=== PATIENT | male | born 1960 | race African-American/Black ===

== ENCOUNTER 2021-10-15 23:20 | Inpatient (IN) | payer OTHER ==
[~2021-10-15] VITALS: Ht 177.8 cm; Wt 111.1 kg
--- NOTE | 2021-10-15 23:25 | NUR ---
PT BIBSELF C/O ABD PAIN, N/V X 1600 TODAY S/P TAKING VITAMINS AND EATING TUNA FISH. PT AAO4 BREATHING EVENLY AND UNLABORED. PT ATTACHED TO MONITOR AND POX. MD AT BEDSIDE FOR EVAL. LAC 20G INITIATED AND BLOOD SENT TO LAB. SKIN IS WARM AND DRY. PT GIVEN BLANKET AND CALL LIGHT WITHIN REACH
[2021-10-15] MEDS ORDERED: ONDANSETRON HCL/PF 4 MG/2 ML VIAL ONE (23:48)
[2021-10-15] MEDS ORDERED: MORPHINE SULFATE INJ 4 MG/ML DISP.SYRIN ONE (23:48)
[2021-10-15 23:57] LABS: BILIRUBIN,URINE SMALL (NEGATIVE); COLOR,URINE YELLOW (YELLOW); LEUKOCYTE ESTERASE ,URINE Negative (NEGATIVE); NITRITE, URINE Negative (NEGATIVE); PROTEIN,URINE Trace mg/dl (NEGATIVE); UGLUCOSE Negative (NEGATIVE)
[2021-10-15 23:57] LABS: BASOPHILS % (AUTO) 0.4 % (0.0-2.0); EOSINOPHILS % (AUTO) 0.6 % (0.0-6.0); HEMATOCRIT 48 % (39-51); HEMOGLOBIN 15.8 g/dL (13.5-17.5); LYMPHOCYTES # (AUTO) 0.8 K/uL (0.8-4.8); LYMPHOCYTES % (AUTO) 6.9 % (20.0-44.0); MEAN CORPUSCULAR HGB CONC 33 g/dl (31.0-36.0); MEAN CORPUSCULAR VOLUME 91 fL (80-96); MONOCYTES # (AUTO) 0.5 K/uL (0.1-1.30); MONOCYTES % (AUTO) 4.6 % (2.0-12.0); NEUTROPHILS # (AUTO) 9.7 K/uL (1.8-8.9); NEUTROPHILS % (AUTO) 87.5 % (43.0-81.0); PLATELET COUNT (AUTO) 159 K/uL (150-450); RED BLOOD CELL COUNT(AUTO) 5.26 MIL/uL (4.5-6.0)
[2021-10-16] MEDS ORDERED: MORPHINE SULFATE INJ 2 MG/ML DISP.SYRIN IV ONE
[2021-10-16] MEDS ORDERED: ONDANSETRON HCL/PF 4 MG/2 ML VIAL IVP ONE
[2021-10-16] MEDS ORDERED: IV NS 0.9% 1,000 ML BAG IV ONE
[2021-10-16 00:05] LABS: CALCIUM, SERUM 8.9 mg/dL (8.5-10.1); CARBON DIOXIDE 28 mmol/L (21-32); CHLORIDE 102 mmol/L (98-107); GLUCOSE 150 mg/dL (74-106); POTASSIUM 3.2 mmol/L (3.5-5.1); SODIUM SERUM 139 mmol/L (136-145); UREA NITROGEN, BLOOD 11 mg/dL (7-18)
[2021-10-16 00:07] LABS: BACTERIA,URINE Rare /HPF (None Seen); RBC,URINE NONE SEEN /HPF (0-2); SQUAMOUS EPITHELIAL CELL,UR Few /HPF (None Seen); WBC,URINE NONE SEEN /HPF (0-3)
[2021-10-16 00:12] LABS: ALANINE AMINOTRANSFERASE 290 U/L (12-78); ALBUMIN 3.8 g/dL (3.4-5.0); ALKALINE PHOSPHATASE 215 U/L (46-116); ASPARTATE AMINOTRANSFERASE 216 U/L (15-37); BILIRUBIN,DIRECT 2.9 mg/dL (0.0-0.2); TOTAL PROTEIN, SERUM 7.9 g/dL (6.4-8.2)
--- NOTE | 2021-10-16 00:13 | NUR ---
TAKENT TO CT
[2021-10-16 00:14] LABS: LIPASE 10488 U/L (73-393)
[2021-10-16] MEDS ORDERED: hydrALAZINE HCL IV 20 MG VIAL ONE (01:56)
[2021-10-16] MEDS ORDERED: hydrALAZINE HCL IV 20 MG VIAL IV PRN (02:00)
[2021-10-16] MEDS ORDERED: MORPHINE SULFATE INJ 4 MG/ML DISP.SYRIN ONE (02:39)
[2021-10-16] MEDS ORDERED: ONDANSETRON HCL/PF 4 MG/2 ML VIAL IV PRN ×2 (03:00→03:30)
[2021-10-16] MEDS ORDERED: MORPHINE SULFATE INJ 4 MG/ML DISP.SYRIN IV PRN (03:00)
--- NOTE | 2021-10-16 03:13 | NUR ---
GAVE REPORT TO JOSE RAMON MCCARTNEY FOR NHUNG
[2021-10-16 03:30] VITALS: BP 158/83
[2021-10-16] MEDS ORDERED: IV NS 0.9% 1,000 ML IV ONE (03:30)
--- NOTE | 2021-10-16 03:30 | NUR ---
MS RN ADMITTING NOTE PT TRANSPORTED BY [facility] TO UNIT FROM ED AT THIS TIME. RECEIVED REPORT FROM JOSE RAMON AMBROCIO @ED, A/OX 4. PT ABLE TO COMMUNICATE NEEDS. NO SOB NOTED, NO C/O AUGUSTIN AT THIS TIME, NO S/S OF ANY APPARENT DISTRESS NOTED. RESPIRATIONS EVEN AND UNLABORED, ACTIVE BOWEL SOUNDS AUSCULTATED THROUGHOUT, ABDOMEN IS TENDER AND NON DISTENDED, SKIN IS INTACT, WARM TO TOUCH. CAPILLARY REFILL < 3 SECONDS, PULSES PRESENT BILATERALLY, GOOD CIRCULATION NOTED. IV ACCESS IN LEFT AC G # 20, INTACT, PATENT AND FLUSHING WELL. PT'S BELONGINGS ACCOUNTED FOR, AND KEPT AT PT'S BEDSIDE PER PT REQUEST. ASPIRATION AND SAFETY PRECAUTIONS IN PLACE AND MAINTAINED AT ALL TIMES. BED IN LOWEST, LOCKED POSITION, SIDE RAILS UP X2, TABLE AND CALL LIGHT WITHIN REACH. WILL CONTINUE TO MONITOR
[2021-10-16 03:35] VITALS: BP 158/83
[2021-10-16] MEDS: POTASSIUM CL. PREMIX PERIPHER. 50 ML IV SCH ×4 (05:18→06:35)
[2021-10-16] MEDS: PANTOPRAZOLE 40 MG VIAL IV SCH (05:19)
--- NOTE | 2021-10-16 06:30 | NUR ---
MS RN CLOSING NOTE PT REMAINED STABLE THROUGHOUT SHIFT. WILL ENDORSE TO AM RN FOR NHUNG.
[2021-10-16 07:31] LABS: BASOPHILS % (AUTO) 0.1 % (0.0-2.0); HEMATOCRIT 45 % (39-51); HEMOGLOBIN 15.2 g/dL (13.5-17.5); LYMPHOCYTES # (AUTO) 0.9 K/uL (0.8-4.8); LYMPHOCYTES % (AUTO) 8.1 % (20.0-44.0); MEAN CORPUSCULAR HGB CONC 34 g/dl (31.0-36.0); MEAN CORPUSCULAR VOLUME 91 fL (80-96); MONOCYTES # (AUTO) 0.9 K/uL (0.1-1.30); MONOCYTES % (AUTO) 7.9 % (2.0-12.0); NEUTROPHILS # (AUTO) 9.5 K/uL (1.8-8.9); NEUTROPHILS % (AUTO) 83.9 % (43.0-81.0); PLATELET COUNT (AUTO) 159 K/uL (150-450); RED BLOOD CELL COUNT(AUTO) 4.95 MIL/uL (4.5-6.0); WHITE BLOOD COUNT (AUTO) 11.3 K/uL (4.3-11.0)
--- NOTE | 2021-10-16 07:36 | NUR ---
MS RN OPENING NOTE Patient lying in bed, awake. A/O x 4. On room air, breathing evenly and unlabored. No SOB or s/s of distress noted. IV access on LAC #20G, intact and patent. Safety precautions in place: bed in low, locked position; siderails up x2; call light within reach. Will continue to monitor.
[2021-10-16 07:46] LABS: ALBUMIN 3.5 g/dL (3.4-5.0); CALCIUM, SERUM 8.3 mg/dL (8.5-10.1); PHOSPHORUS 2.8 mg/dL (2.5-4.9); POTASSIUM 3.4 mmol/L (3.5-5.1); TOTAL PROTEIN, SERUM 7.2 g/dL (6.4-8.2)
[2021-10-16 08:00] VITALS: BP 164/83
[2021-10-16] MEDS ORDERED: Potassium Chloride 10 MEQ in IV D5W 50 ML IV SCH (09:30)
[2021-10-16] MEDS ORDERED: POTASSIUM CL. PREMIX PERIPHER. 50 ML IV SCH (10:00)
[2021-10-16 16:00] VITALS: BP 168/108
[2021-10-16] MEDS: hydrALAZINE HCL IV 20 MG VIAL IV PRN ×2 (17:58→23:52)
--- NOTE | 2021-10-16 18:22 | NUR ---
RN NOTE PATIENT'S BP WAS 183/87 OH 111. HYDRALAZINE 0.5 ML IV PRN GIVEN.
--- NOTE | 2021-10-16 18:51 | NUR ---
MS RN CLOSING NOTE Patient in bed, awake. A/O x 4, able to make needs known. Stable on room air, no SOB or s/s of distress noted. IV access on LAC #20G is intact, patent, and flushing well. NPO status maintained. All needs attended to. Due meds given. No complains of pain or any discomfort at this time. Safety precautions maintained: bed in low, locked position; siderails up x 2; call light within reach of patient. Will endorse to production supervisor off shift nurse for NHUNG.
--- NOTE | 2021-10-16 19:00 | NUR ---
MS RN OPENING NOTE RECEIVED PT IN BED, AWAKE AND RESTING. A/O X4. PT IS ON ROOM AIR, NO SOB OR RESPIRATORY DISTRESS NOTED, NO C/O PAIN AT THIS TIME. RESPIRATIONS EVEN AND UNLABORED. IV ACCESS NOTED IN LEFT AC G #20 . FALL AND SAFETY MEASURES IN PLACE AND MAINTAINED AT ALL TIMES. BED ALARM, BED IN LOW AND LOCKED POSITION, HOB ELEVATED TO SEMI FOWLERS POSITION, CALL LIGHT AND TABLE WITHIN REACH. SIDE RAILS UP X2. WILL CONTINUE WITH PLAN OF CARE
[2021-10-16 20:00] VITALS: BP_SYST 112; BP_SYST 159; BP_DIAS 109; BP_DIAS 79
--- NOTE | 2021-10-16 23:52 | NUR ---
PT'S BP 171/108, HR 126. HYDRALAZINE 10MG (0.5ML) IV Q6HR PRN ADMINISTERED AT THIS PER ORDER FOR SBP > 160. WILL CONTINUE TO MONITOR.
[2021-10-17] MEDS ORDERED: ZOLPIDEM TARTRATE 5 MG TABLET PO PRN (00:30)
[2021-10-17] MEDS: PANTOPRAZOLE 40 MG VIAL IV SCH (05:18)
[2021-10-17 06:18] LABS: BASOPHILS % (AUTO) 0.1 % (0.0-2.0); EOSINOPHILS % (AUTO) 0.2 % (0.0-6.0); HEMATOCRIT 46 % (39-51); HEMOGLOBIN 15.5 g/dL (13.5-17.5); LYMPHOCYTES # (AUTO) 1.5 K/uL (0.8-4.8); MEAN CORPUSCULAR HGB CONC 34 g/dl (31.0-36.0); MEAN CORPUSCULAR VOLUME 91 fL (80-96); MONOCYTES % (AUTO) 7.1 % (2.0-12.0); NEUTROPHILS % (AUTO) 81.6 % (43.0-81.0); PLATELET COUNT (AUTO) 158 K/uL (150-450); RED BLOOD CELL COUNT(AUTO) 4.99 MIL/uL (4.5-6.0); WHITE BLOOD COUNT (AUTO) 13.5 K/uL (4.3-11.0)
--- NOTE | 2021-10-17 06:30 | NUR ---
MS RN CLOSING NOTE PT REMAINED STABLE THROUGHOUT SHIFT. WILL ENDORSE TO AM RN FOR NHUNG.
[2021-10-17 06:54] LABS: CALCIUM, SERUM 8.4 mg/dL (8.5-10.1); CREATININE 1.1 mg/dL (0.6-1.3)
--- NOTE | 2021-10-17 07:14 | NUR ---
MS RN OPENING NOTE PATIENT RECEIVED ASLEEP IN BED. PATIENT IS BREATHING W/O S/S OF DISTRESS; SKIN IS CLEAN AND INTACT. HE HAS A LAC #20 PATENT. PATIENT WILL BE MONITORED THROUGHOUT SHIFT FOR ALL NEEDS.
[2021-10-17 08:00] VITALS: BP 171/110
[2021-10-17] MEDS: PIPERACILLIN /TAZOBACTAM 3.375 G in IV D5W 100 ML IV SCH ×2 (08:10→15:22)
[2021-10-17] MEDS ORDERED: PIPERACILLIN /TAZOBACTAM 3.375 G in IV D5W 50 ML IV SCH (12:00)
[2021-10-17] MEDS: IV NS 0.9% 1,000 ML IV PRN (15:22)
[2021-10-17 16:00] VITALS: BP 164/99
--- NOTE | 2021-10-17 18:48 | NUR ---
MS RN CLOSING NOTE PATIENT AWAKE IN BED WATCHING TV. PATIENT HAS REMAINED NPO D/T PANCREATITIS. PATIENT WAS ABLE TO SPEAK WITH HIS FAMILY A FEW TIMES THROUGHOUT THE DAY BY PHONE. NO S/S OF DISTRESS. NO PAIN NOTED. PATIENT IS STABLE. SAFETY MEASURES IN PLACE: BED AT LOWEST POSITION, RAILS UP X2, BED LOCKED IN PLACE, CALL LIGHT WITHIN REACH. WILL ENDORSE TO POLICE LIAISON OFFICER FOR NHUNG.
--- NOTE | 2021-10-17 19:43 | NUR ---
MS RN OPENING NOTES: RECEIVED PATIENT AWAKE IN BED, BED IN LOW POSITION, CALL LIGHTS WITHIN REACH, NO COMPLAIN OF PAIN AND DISCOMFORT AT THIS TIME, IV LINE AT [id number] WITH ONGOING IV FLUID AT NS@75ML PER HOUR INFUSING WELL, PATIENT IS A/P X4 AMBULATORY AND ABLE TO MAKE NEEDS KNOW, STILL NPO, PATIENT KEPT CLEAN AND DRY, ALL NEEDS MET WILL CONTINUE TO MONITOR.
[2021-10-17 20:00] VITALS: BP 156/104
[2021-10-18] MEDS: PIPERACILLIN /TAZOBACTAM 3.375 G in IV D5W 100 ML IV SCH ×4 (00:44→23:51)
[2021-10-18] MEDS: MORPHINE SULFATE INJ 4 MG/ML DISP.SYRIN IM PRN ×4 (01:30→20:13)
[2021-10-18] MEDS: PANTOPRAZOLE 40 MG VIAL IV SCH (03:41)
[2021-10-18 06:34] LABS: BASOPHILS % (AUTO) 0.2 % (0.0-2.0); EOSINOPHILS % (AUTO) 0.2 % (0.0-6.0); HEMATOCRIT 44 % (39-51); HEMOGLOBIN 14.7 g/dL (13.5-17.5); LYMPHOCYTES # (AUTO) 1.4 K/uL (0.8-4.8); LYMPHOCYTES % (AUTO) 10.1 % (20.0-44.0); MEAN CORPUSCULAR HGB CONC 34 g/dl (31.0-36.0); MEAN CORPUSCULAR VOLUME 92 fL (80-96); MONOCYTES # (AUTO) 1.1 K/uL (0.1-1.30); MONOCYTES % (AUTO) 8.5 % (2.0-12.0); NEUTROPHILS # (AUTO) 10.9 K/uL (1.8-8.9); PLATELET COUNT (AUTO) 158 K/uL (150-450); WHITE BLOOD COUNT (AUTO) 13.5 K/uL (4.3-11.0)
[2021-10-18 06:56] LABS: CALCIUM, SERUM 8.2 mg/dL (8.5-10.1); CREATININE 1.1 mg/dL (0.6-1.3); POTASSIUM 3.3 mmol/L (3.5-5.1)
--- NOTE | 2021-10-18 07:31 | NUR ---
MS RN CLOSING NOTES: PATIENT SLEEP IN BED COMFORTABLY, BED IN LOW POSITION, CALL LIGHTS WITHIN REACH, NO COMPLAIN OF PAIN AND DISCOMFORT AT THIS TIME, PATIENT IS A/O X4 AMBULATORY, NPO WITH IV LINE AT LAC#20 WITH ONGOING IV LINE OF NSS@75 PATIENT KEPT CLEAN AND DRY, ALL NEEDS MET ENDORSE TO INCOMING SHIFT.
--- NOTE | 2021-10-18 08:01 | NUR ---
MS RN OPENING NOTES: RECEIVED PATIENT AWAKE IN BED A/O x4. BED IN LOW POSITION, CALL LIGHTS WITHIN REACH, Pt complain of pain 5/10, WILL ADMINISTER PAIN MEDS AT THIS TIME, IV LINE AT L AC 20G WITH ONGOING IV FLUID AT NS@75ML/ hr INFUSING WELL. Pt IS AMBULATORY AND ABLE TO MAKE NEEDS KNOWN, STILL NPO, PATIENT KEPT CLEAN AND DRY, ALL NEEDS MET AT THIS TIME AND WILL CONTINUE TO MONITOR THROUGHOUT THE SHIFT.
[2021-10-18 08:13] VITALS: BP 173/108
[2021-10-18] MEDS: hydrALAZINE HCL IV 20 MG VIAL IV PRN ×2 (08:18→16:05)
[2021-10-18] MEDS: POTASSIUM CL. PREMIX PERIPHER. 50 ML IV SCH ×2 (10:39→11:28)
[2021-10-18 16:17] VITALS: BP 166/99
--- NOTE | 2021-10-18 19:26 | NUR ---
MS RN CLOSING NOTES: PATIENT AWAKE IN BED COMFORTABLY. BED IS IN LOW POSITION, CALL LIGHTS WITHIN REACH, NO COMPLAINTS OF PAIN OR DISCOMFORT AT THIS TIME, PATIENT IS A/O X4 AMBULATORY, NPO WITH IV LINE AT LAC#20 WITH ONGOING IV LINE OF NS@75. PATIENT KEPT CLEAN AND DRY, ALL NEEDS MET AT THIS TIME. WILL ENDORSE TO ONCOMING SHIFT.
--- NOTE | 2021-10-18 19:28 | NUR ---
MS RN OPENING NOTES: RECEIVED PATIENT AWAKE IN BED, BED IN LOW POSITION, CALL LIGHTS WITHIN REACH, NO COMPLAIN OF PAIN AND DISCOMFORT AT THIS TIME, PATIENT IS A/O X4 AMBULATORY ABLE TO MAKE NEEDS KNOW, STILL NPO, IV LINE AT RT HAND #22 WITH ONGOING IV FLUID OF NSS@75ML PER HOUR INFUSING WELL, PATIENT KEPT CLEAN AND DRY, ALL NEEDS MET, WILL CONTINUE TO MONITOR.
[2021-10-18 20:00] VITALS: BP 143/99
[2021-10-19] MEDS: PANTOPRAZOLE 40 MG VIAL IV SCH (03:38)
[2021-10-19] MEDS: IV NS 0.9% 1,000 ML IV PRN (06:11)
[2021-10-19 06:26] LABS: BASOPHILS % (AUTO) 0.3 % (0.0-2.0); EOSINOPHILS % (AUTO) 0.8 % (0.0-6.0); HEMATOCRIT 43 % (39-51); HEMOGLOBIN 14.5 g/dL (13.5-17.5); LYMPHOCYTES # (AUTO) 1.2 K/uL (0.8-4.8); LYMPHOCYTES % (AUTO) 9.7 % (20.0-44.0); MEAN CORPUSCULAR HGB CONC 34 g/dl (31.0-36.0); MEAN CORPUSCULAR VOLUME 91 fL (80-96); MONOCYTES # (AUTO) 1.3 K/uL (0.1-1.30); MONOCYTES % (AUTO) 10.2 % (2.0-12.0); NEUTROPHILS # (AUTO) 9.8 K/uL (1.8-8.9); PLATELET COUNT (AUTO) 159 K/uL (150-450); RED BLOOD CELL COUNT(AUTO) 4.74 MIL/uL (4.5-6.0); WHITE BLOOD COUNT (AUTO) 12.4 K/uL (4.3-11.0)
[2021-10-19 06:28] LABS: CALCIUM, SERUM 8.7 mg/dL (8.5-10.1); POTASSIUM 3.5 mmol/L (3.5-5.1)
--- NOTE | 2021-10-19 06:39 | NUR ---
MS RN CLOSING NOTES PATIENT SLEEP IN BED COMFORTABLY, BED IN LOW POSITION, CALL LIGHTS WITHIN REACH, NO COMPLAIN OF PAIN AND DISCOMFORT AT THIS TIME, PATIENT IS A/O X4 AMBULATORY ABLE TO MAKE NEED KNOWN, NPO, WITH RIGHT HAND #22 IV LINE WITH ONGOING IV HYDRATION OF 0.9NSS @75ML PER HOUR INFUSING WELL, PATIENT KEPT CLEAN AND DRY, ALL NEEDS MET, ENDORSE TO INCOMING SHIFT.
--- NOTE | 2021-10-19 07:16 | NUR ---
RN OPENING NOTES PATIENT IN BED RESTING, EYES CLOSED. ABLE TO BE AWAKENED, A/O X4. NO COMPLAIN OF PAIN AT THIS TIME. AMBULATORY W/ STEADY GAIT. RIGHT HAND #22 IV LINE INTACT AND PATENT, IV HYDRATION OF INFUSING WELL. CURRENTLY NPO STATUS. SAFETY MEASURES IN PLACE. WILL CONTINUE TO MONITOR.
--- NOTE | 2021-10-19 07:29 | NUR ---
RN NOTES SEEN BY DR. PAULSON TODAY AND MADE AWARE OF PLAN OF CARE. PATIENT IS OK FOR SURGERY AND TO LET DR. CONTRERAS'S TEAM KNOW WHEN THEY COME SEE THE PATIENT.
[2021-10-19] MEDS: PIPERACILLIN /TAZOBACTAM 3.375 G in IV D5W 100 ML IV SCH ×3 (07:48→23:32)
[2021-10-19] MEDS: MORPHINE SULFATE INJ 4 MG/ML DISP.SYRIN IM PRN ×3 (07:54→20:05)
[2021-10-19 08:00] VITALS: BP 156/95
--- NOTE | 2021-10-19 12:39 | NUR ---
RN NOTES PATIENT SEEN BY PRISCILLA FINK NP, FOR CONSULT W/ ORDER FOR GI CONSULT W/ DR. NGUYEN D/T "MRCP noted with choledocholithiasis". Addendum: 10/19/21 at 1359 by JIMBO BRAVO RN INFORMED DR. NGUYEN PER CHARGE NURSE.
--- NOTE | 2021-10-19 14:10 | NUR ---
RN NOTES SPOKE W/ DR. NGUYEN AND INFORMED ABOUT GI CONSULT FOR PATIENT. PER MD, OK FOR PATIENT TO BE ON CLEAR LIQUID DIET, CHECK LIPASE LEVEL EVERYDAY, PAIN CONTROL, POSSIBLE ERCP THURSDAY (NPO POST MIDNIGHT ON DAY OF ERCP).
--- NOTE | 2021-10-19 15:00 | NUR ---
RN NOTES INFORMED PATIENT ABOUT GI CONSULT W/ DR. NGUYEN AND PLAN OF CARE. CONSENT FORM FOR ERCP SIGNED BY PATIENT AND PLACED IN PATIENT'S CHART. NO COMPLAINT OF PAIN NOR N/V AT THIS TIME. IV FLUIDS CONTINUOUS. PLACED ON CLEAR LIQUID DIET PER MD. TOLERATING ICE CHIPS AT THIS TIME.
[2021-10-19 16:00] VITALS: BP 153/93
--- NOTE | 2021-10-19 17:28 | NUR ---
RN NOTES PATIENT CURRENTLY HAVING DINNER W/ CLEAR LIQUID DIET. NO COMPLAINT OF NAUSEA/VOMITING AT THIS TIME; NO COMPLAINT OF PAIN AT THE MOMENT. TOLERATING DIET SO FAR. PATIENT FEELS HE WANTS TO "DO NUMBER 2" AND WAS REASSURED THAT IT'S NORMAL. WILL CONTINUE TO MONITOR.
--- NOTE | 2021-10-19 18:45 | NUR ---
RN NOTES PATIENT IN BED RESTING, AWAKE AND VERBALLY RESPONSIVE. A/O X4. NO COMPLAIN OF PAIN AT THIS TIME. AMBULATORY W/ STEADY GAIT. RIGHT HAND #22 IV LINE INTACT AND PATENT, IV HYDRATION OF INFUSING WELL. TOLERATING CLEAR LIQUID DIET. SAFETY MEASURES MAINTAINED. WILL ENDORSE TO GRAY MIXING OPERATOR RN FOR NHUNG.
--- NOTE | 2021-10-19 19:05 | NUR ---
RN NOTES: RECEIVED AWAKE ON BED, A/OX4M WITH BRP, AMBULATORY, ON CLEAR LIQUIDS,IV CANNULA ON THE RH G#22 INTACT AND PATENT WITH IVF OF OF NS AT 75 ML/HR ONGOING. PER ENDORSEMENT FOR ERCP ON THURSDAY PER .ORIENTED TO UNIT AND STAFF.FALL AND SAFETY PRECAUTION OBSERVED, BED LOW AND LOCKED, CALL LIGHT KEPT WITHIN EASY REACH.
[2021-10-19 20:00] VITALS: BP 149/87
--- NOTE | 2021-10-19 20:06 | NUR ---
RN NOTES: -COMPLAINED OF SEVERE GENERALIZED PAIN AND HE ASKED FOR HIS PAIN MEDICATION,GIVEN PER PATIENT REQUEST, NON PHARMACOLOGIC INTERVENTION RENDERED. Addendum: 10/19/21 at 2020 by KIRSTIE MATHUR RN RN NOTES: CHARGE NURSE HAVE TAKEN THE MEDICATION FROM THE [facility], MEDICATION GIVEN.
--- NOTE | 2021-10-19 22:23 | NUR ---
RN NOTES: -AT 2049-ABLE TO SLEEP AND TAKE A REST.KEPT CALL LIGHT WITHIN EASY REACH.
[2021-10-20] MEDS: MORPHINE SULFATE INJ 4 MG/ML DISP.SYRIN IM PRN ×6 (00:42→23:56)
--- NOTE | 2021-10-20 00:49 | NUR ---
RN NOTES: HE WAS AWAKEN, WENT TO THE BATHROOM, WHEN HE CAME BACK, HE SAID HE HAS ABDOMINAL PAIN AND ASKING FOR HIS PAIN MEDICATION, LATEST BP-150/85, PAIN MEDICATION GIVEN PER PATIENT REQUEST.
--- NOTE | 2021-10-20 01:15 | NUR ---
RN NOTES: -TRYING TO SLEEP IN BETWEEN, KEPT CALL LIGHT WITHIN EASY REACH.
[2021-10-20] MEDS: PANTOPRAZOLE 40 MG VIAL IV SCH (03:42)
[2021-10-20 06:45] LABS: BASOPHILS % (AUTO) 0.2 % (0.0-2.0); EOSINOPHILS % (AUTO) 1.8 % (0.0-6.0); HEMATOCRIT 40 % (39-51); HEMOGLOBIN 13.2 g/dL (13.5-17.5); LYMPHOCYTES # (AUTO) 1.6 K/uL (0.8-4.8); LYMPHOCYTES % (AUTO) 13.6 % (20.0-44.0); MEAN CORPUSCULAR HGB CONC 33 g/dl (31.0-36.0); MEAN CORPUSCULAR VOLUME 92 fL (80-96); MONOCYTES # (AUTO) 1.4 K/uL (0.1-1.30); MONOCYTES % (AUTO) 11.8 % (2.0-12.0); NEUTROPHILS # (AUTO) 8.4 K/uL (1.8-8.9); NEUTROPHILS % (AUTO) 72.6 % (43.0-81.0); PLATELET COUNT (AUTO) 187 K/uL (150-450); RED BLOOD CELL COUNT(AUTO) 4.34 MIL/uL (4.5-6.0); WHITE BLOOD COUNT (AUTO) 11.5 K/uL (4.3-11.0)
[2021-10-20 07:23] LABS: ALBUMIN 2.2 g/dL (3.4-5.0); BILIRUBIN,TOTAL 6.2 mg/dL (0.2-1.0); CALCIUM, SERUM 8.3 mg/dL (8.5-10.1); CREATININE 1.1 mg/dL (0.6-1.3); POTASSIUM 3.5 mmol/L (3.5-5.1); TOTAL PROTEIN, SERUM 6.3 g/dL (6.4-8.2)
--- NOTE | 2021-10-20 07:38 | NUR ---
RN NOTES: ABLE TO SLEEP AND REST, KEPT CALL LIGHT WITHIN EASY REACH, FOR LABS IN THE MORNING , ENDORSED FOR CONTINUITY OF CARE.
--- NOTE | 2021-10-20 07:57 | NUR ---
MS ALBRIGHT AM SHIFT NOTES - OPENING RECEIVED REPORT FROM PM RN AT Pt. BEDSIDE. Pt. AWAKE AND COMMUNICATIVE WITHOUT ACUTE DISTRESS AT THIS TIME. VSS.
[2021-10-20] MEDS: PIPERACILLIN /TAZOBACTAM 3.375 G in IV D5W 100 ML IV SCH ×3 (08:27→23:26)
[2021-10-20] MEDS: IV NS 0.9% 1,000 ML IV PRN (08:56)
--- NOTE | 2021-10-20 19:15 | NUR ---
Patient is A&Ox4. No signs of distress. Says pain is tolerable at this time but will call if medicine needed. IV patent and flushed. Reminded pt. he will be NPO post midnight. Patient verbalizes understanding. Will cont. to monitor pt. throughout shift.
[2021-10-21] MEDS: PANTOPRAZOLE 40 MG VIAL IV SCH (03:37)
[2021-10-21] MEDS: IV NS 0.9% 1,000 ML IV PRN (04:20)
--- NOTE | 2021-10-21 05:26 | NUR ---
new larger bore Iv access established. #20G PIV L wrist.
--- NOTE | 2021-10-21 06:04 | NUR ---
Patient is A&Ox4. VSS. C/o abdominal pain x2 overnight with relief from PRN Morphine. Able to sleep well. All consents signed for AM ERCP scheduled for 1100. Patient has been NPO since 0130 more than 8 hours prior to procedure time.
[2021-10-21 06:57] LABS: BASOPHILS % (AUTO) 0.4 % (0.0-2.0); EOSINOPHILS % (AUTO) 1.8 % (0.0-6.0); HEMATOCRIT 39 % (39-51); LYMPHOCYTES # (AUTO) 1.7 K/uL (0.8-4.8); LYMPHOCYTES % (AUTO) 14.3 % (20.0-44.0); MEAN CORPUSCULAR HGB CONC 34 g/dl (31.0-36.0); MEAN CORPUSCULAR VOLUME 92 fL (80-96); MONOCYTES # (AUTO) 1.2 K/uL (0.1-1.30); MONOCYTES % (AUTO) 10.1 % (2.0-12.0); NEUTROPHILS # (AUTO) 8.6 K/uL (1.8-8.9); NEUTROPHILS % (AUTO) 73.4 % (43.0-81.0); PLATELET COUNT (AUTO) 196 K/uL (150-450); RED BLOOD CELL COUNT(AUTO) 4.25 MIL/uL (4.5-6.0); WHITE BLOOD COUNT (AUTO) 11.7 K/uL (4.3-11.0)
--- NOTE | 2021-10-21 07:30 | NUR ---
m/s phd intern: notes dr. rabago at bedside and updating plan of care. pt verbalized understanding. pt remains npo,for ercp today at 1100 per report. no c/o pain or any discomfort. instructed to call for assistance. will continue to monitor.
[2021-10-21] MEDS: MORPHINE SULFATE INJ 4 MG/ML DISP.SYRIN IM PRN (07:43)
--- NOTE | 2021-10-21 07:43 | NUR ---
m/s manager work: notes c/o 8/10 lower abdomen pain, medicated with morphine 4mg im as ordered. instructed to call for assistance. will continue to monitor.
[2021-10-21] MEDS: PIPERACILLIN /TAZOBACTAM 3.375 G in IV D5W 100 ML IV SCH ×3 (07:48→23:57)
[2021-10-21 08:13] VITALS: BP 145/97
--- NOTE | 2021-10-21 08:13 | NUR ---
m/s staff nurse: notes pt in bed with eyes close, no s/s of resp. distress noted. call light within reach. will monitor.
[2021-10-21] MEDS ORDERED: IOHEXOL 240MG/ML 0 ML IV ONE (09:19)
[2021-10-21] MEDS ORDERED: ANESTHESIA TRAY IN PYXIS 1 EA TRAY MC ONE (09:19)
[2021-10-21] MEDS ORDERED: INDOMETHACIN 50 MG SUPP.RECT ONE (09:19)
[2021-10-21] MEDS ORDERED: IOHEXOL 240MG/ML 50 ML IV ONE (09:43)
--- NOTE | 2021-10-21 10:42 | NUR ---
m/s rubber press tender: notes to ercp via bed at this time accompanied by tech and 1 rn with chart.
[2021-10-21 11:07] LABS: CALCIUM, SERUM 8.6 mg/dL (8.5-10.1)
[2021-10-21 12:50] VITALS: BP 152/88
--- NOTE | 2021-10-21 12:50 | NUR ---
m/s senior director: notes received pt from recovery room with dx: s/p ercp. pt is awake, a/ox4. no c/o pain or any discomfort. vss, afebrile. assisted to bathroom. no distress noted. will continue to monitor.
--- NOTE | 2021-10-21 13:55 | NUR ---
m/s birthing nurse: surgeon f/u seen and examined by kendall (carol) at this time. for possible surgery in am per journeyman press operator. pt verbalized understanding re: plan of care. pt having clear liquid diet at this time. instructed to call for assistance.
[2021-10-21 15:58] VITALS: BP 162/87
--- NOTE | 2021-10-21 16:30 | NUR ---
m/s control center operator: notes kendall (television announcer) called and informed cn that she going to talk to the pt and plan to do surgery as outpatient as stated. clear liquid diet re order. pt made aware.
--- NOTE | 2021-10-21 17:30 | NUR ---
m/s supervisor blasting: surgeon f/u kendall (switcher) at bedside and updating the pt's plan of care.
--- NOTE | 2021-10-21 18:15 | NUR ---
m/s appliance painter and refinisher: notes pt request to speak to kendall (carol) once more, per pt sister from [place] has questions and concerns. kendall (registry np) made aware and pt handed the phone to kendall. all questions and concerns answered by registry np, but still adamant getting the surgery here and not outpatient. per kendall, dr. jaimes to come and to see pt. pt aware.
--- NOTE | 2021-10-21 18:55 | NUR ---
m/s production quality analyst: surgeon f/u dr. jaimes at bedside educating pt at this time.
--- NOTE | 2021-10-21 19:15 | NUR ---
m/s machine icer: notes bedside report given to shana (rn) for continuity of care.
--- NOTE | 2021-10-21 19:20 | NUR ---
MS RN OPENING NOTES RECEIVED PATIENT AWAKE LAYING IN BED. A/O X4 PATIENT WITH REGULAR AND UNLABORED BREATHING ON ROOM AIR, TOLERATED WELL. NO SIGNS AND SYMPTOMS OF DISTRESS NOTED. NO COMPLAIN OF PAIN OR DISCOMFORT AT THIS TIME. PATIENT IS AMBULATORY WITH NO WEAKNESS NOTED. IV ACCESS R HAND G #22 WITH NS @75 MLS/HR AND L WRIST G #20 SL. ACCESS PATENT AND INTACT. SKIN IS DRY AND INTACT. SAFETY PRECAUTIONS ENFORCED WITH BED LOCKED AND AT LOWEST POSITION SIDERAILS UP X2. CALL LIGHT WITHIN REACH AT ALL TIMES. WILL CONTINUE TO MONITOR PATIENT.
--- NOTE | 2021-10-21 19:30 | NUR ---
MS ALBRIGHT OPENING NOTES RECEIVED PATIENT AWAKE LAYING IN BED. PATIENT IS A/O X1-2. PATIENT IS STABLE ON ROOM AIR. IV ACCESS NOTED IN RAC G#18, WHICH IS INTACT, PATENT, AND FLUSHING WELL. PATIENT'S IN NO ACUTE DISTRESS AT THIS TIME. SAFETY MEASURES IN PLACE: BED LOCKED, BED ALARM ON, SR UPX3, AND CALL LIGHT WITHIN REACH OF THE PATIENT. WILL CONTINUE TO MONITOR THE PATIENT. Addendum: 10/21/21 at 2040 by BETZY HERNANDEZ RN DISREGARD THIS NOTE
[2021-10-21 20:00] VITALS: BP 146/81
[2021-10-22] MEDS: PANTOPRAZOLE 40 MG VIAL IV SCH (03:56)
--- NOTE | 2021-10-22 06:21 | NUR ---
MS RN CLOSING NOTES PATIENT IS AWAKE IN BED. A/O X4 PATIENT STILL WITH REGULAR AND UNLABORED BREATHING ON ROOM AIR, TOLERATED WELL. NO SIGNS AND SYMPTOMS OF DISTRESS NOTED. NO COMPLAIN OF PAIN OR DISCOMFORT AT THIS TIME. PATIENT IS AMBULATORY WITH NO WEAKNESS NOTED. IV ACCESS R HAND G #22 WITH NS @75 MLS/HR AND L WRIST G #20 SL. ACCESS PATENT AND INTACT. SKIN IS DRY AND INTACT. SAFETY PRECAUTIONS ENFORCED WITH BED LOCKED AND AT LOWEST POSITION SIDERAILS UP X2. CALL LIGHT WITHIN REACH AT ALL TIMES. WILL ENDORSE CONTINUITY OF CARE TO DAY SHIFT NURSE.
[2021-10-22 07:07] LABS: ALBUMIN 2.3 g/dL (3.4-5.0); BILIRUBIN,TOTAL 3.2 mg/dL (0.2-1.0); CALCIUM, SERUM 8.3 mg/dL (8.5-10.1); CREATININE 0.9 mg/dL (0.6-1.3); POTASSIUM 3.3 mmol/L (3.5-5.1); TOTAL PROTEIN, SERUM 6.2 g/dL (6.4-8.2)
[2021-10-22 07:21] LABS: BASOPHILS % (AUTO) 0.5 % (0.0-2.0); EOSINOPHILS % (AUTO) 1.4 % (0.0-6.0); HEMATOCRIT 37 % (39-51); HEMOGLOBIN 12.4 g/dL (13.5-17.5); LYMPHOCYTES # (AUTO) 1.1 K/uL (0.8-4.8); LYMPHOCYTES % (AUTO) 11.4 % (20.0-44.0); MEAN CORPUSCULAR HGB CONC 34 g/dl (31.0-36.0); MEAN CORPUSCULAR VOLUME 92 fL (80-96); MONOCYTES # (AUTO) 0.9 K/uL (0.1-1.30); MONOCYTES % (AUTO) 9.5 % (2.0-12.0); NEUTROPHILS # (AUTO) 7.4 K/uL (1.8-8.9); NEUTROPHILS % (AUTO) 77.2 % (43.0-81.0); PLATELET COUNT (AUTO) 241 K/uL (150-450); RED BLOOD CELL COUNT(AUTO) 4.03 MIL/uL (4.5-6.0); WHITE BLOOD COUNT (AUTO) 9.6 K/uL (4.3-11.0)
[2021-10-22] MEDS: PIPERACILLIN /TAZOBACTAM 3.375 G in IV D5W 100 ML IV SCH (08:00)
[2021-10-22 08:26] VITALS: BP 160/89
--- NOTE | 2021-10-22 08:45 | NUR ---
m/s senior examiner: notes pt refusing iv insertion and antibiotic, stating, "i don't want anything on my body right now, i want to know when i'm leaving, i don't want to pay out of my pocket..." pt has a lot of concerns about elective surgery, money, and staying in the hospital. cn made aware.
[2021-10-22] MEDS ORDERED: AMLODIPINE BESYLATE 5 MG TABLET PO SCH (09:00)
--- NOTE | 2021-10-22 09:50 | NUR ---
m/s stock counter: md visit dr. sequeira at bedside talking to pt and updating plan of care. for d'c home today. pt refused norvasc when offered x3. pt understood the risks when not taking blood pressure med, stated, "i will take my viagra and other herbal meds when i get home."
[2021-10-22] MEDS ORDERED: POTASSIUM CHLORIDE 20 MEQ TAB.PRT.SR PO ONE (10:00)
--- NOTE | 2021-10-22 10:00 | NUR ---
m/s shingle sawyer: notes discharge order received from md, pt verbalized understanding and will f/u with his primary medical doctor at [facility] in regards to elective surgery as stated. order acknowledged.
--- NOTE | 2021-10-22 10:24 | NUR ---
m/s home sales service professional: notes discharge instructions given to pt and verbalized understanding. pt has his car parked here by the [facility] emergency parking
--- NOTE | 2021-10-22 11:40 | NUR ---
m/s drawing kiln supervisor: notes discharge home in stable condition via own private car with all d'c papers and valuables.
== END 2021-10-22 11:30 | disposition home or self-care (01) ==
LOC: ER 23:23 → MED 10-16 01:46
PROVIDERS: ADMIT Family Medicine; ATTEND Internal Medicine
PROC: 0F7D8DZ Dilation of Pancreatic Duct with Intraluminal Device, Via Natural or Artificial Opening Endoscopic (ICD-10-PCS; principal; 2021-10-21)
PROC: 0F798DZ Dilation of Common Bile Duct with Intraluminal Device, Via Natural or Artificial Opening Endoscopic (ICD-10-PCS; 2021-10-21)
PROC: BF14YZZ Fluoroscopy of Gallbladder, Bile Ducts and Pancreatic Ducts using Other Contrast (ICD-10-PCS; 2021-10-21)
DX: K80.43 Calculus of bile duct with acute cholecystitis with obstruction (principal); K85.10 Biliary acute pancreatitis without necrosis or infection; K76.0 Fatty (change of) liver, not elsewhere classified; D72.829 Elevated white blood cell count, unspecified; E66.01 Morbid (severe) obesity due to excess calories; E80.6 Other disorders of bilirubin metabolism; E87.6 Hypokalemia; I10 Essential (primary) hypertension; K80.20 Calculus of gallbladder without cholecystitis without obstruction; Z87.891 Personal history of nicotine dependence; R73.9 Hyperglycemia, unspecified; K59.00 Constipation, unspecified; Z20.822 Contact with and (suspected) exposure to COVID-19; Z68.35 Body mass index [BMI] 35.0-35.9, adult
CPT/HCPCS: 36415; 71045-TC; 74018; 74181-TC; 76705-TC; 80048-TC; 80053-TC; 80076-TC; 81001; 83690-TC; 83735-TC; 84100-TC; 84484-TC; 85025-TC; 85730-TC; 87081-TC; C2625; C9113; C9803; G0378; J0330; J0360; J2270; J2405; J2543; J2704; J3480; J3490; J7030; J7040; J7050; J7060; Q9966